=== PATIENT | female | born 1990 | race Asian ===

== ENCOUNTER 2020-01-27 16:25 | Emergency (ER) | payer SELFPAY ==
[~2020-01-27] VITALS: Ht 175.3 cm; Wt 68.0 kg
[2020-01-27 16:32] VITALS: Ht 175.3 cm; Wt 68.0 kg
[2020-01-27 17:29] VITALS: BP 122/86
== END 2020-01-27 17:29 | disposition home or self-care (01) ==
LOC: ED 16:25
DX: S51.012A Laceration without foreign body of left elbow, initial encounter (principal); S00.03XA Contusion of scalp, initial encounter; S70.12XA Contusion of left thigh, initial encounter; Y04.8XXA Assault by other bodily force, initial encounter; Y93.89 Activity, other specified; Y92.89 Other specified places as the place of occurrence of the external cause; Y99.8 Other external cause status
CPT/HCPCS: 90715; J2001

== ENCOUNTER 2020-02-04 11:29 | Emergency (ER) | payer SELFPAY ==
[~2020-02-04] VITALS: Ht 170.2 cm; Wt 50.8 kg
[2020-02-04 11:35] VITALS: Ht 170.2 cm; Wt 50.8 kg
[2020-02-04 11:49] VITALS: BP 115/76
== END 2020-02-04 11:49 | disposition home or self-care (01) ==
LOC: ED 11:29
DX: S51.012D Laceration without foreign body of left elbow, subsequent encounter (principal); X58.XXXD Exposure to other specified factors, subsequent encounter